=== PATIENT | female | born 1940 | race Caucasian/White ===

== ENCOUNTER 2021-05-29 14:25 | Emergency (ER) | payer MEDICARE ==
[~2021-05-29] VITALS: Ht 157.5 cm; Wt 87.5 kg
[~2021-05-29 14:25] MED LIST: Z.0.PREVACID30 MG PO; Z.0.ZOFRAN4 MG PO
[2021-05-29] MEDS ORDERED: CITALOPRAM HBR20 MG PO (15:00)
[2021-05-29] MEDS ORDERED: OXYBUTYNIN CHLOR5 MG PO (15:00)
[2021-05-29] MEDS ORDERED: PROTONIX20 MG PO (15:00)
[2021-05-29] MEDS ORDERED: BACTRIM DS TAB1 EACH PO (16:20)
== END 2021-05-29 17:43 | disposition home or self-care (01) ==
LOC: FSED 14:48
DX: M25.532 Pain in left wrist (principal); S63.592A Other specified sprain of left wrist, initial encounter; W01.0XXA Fall on same level from slipping, tripping and stumbling without subsequent striking against object, initial encounter; Y93.01 Activity, walking, marching and hiking; Y92.008 Other place in unspecified non-institutional (private) residence as the place of occurrence of the external cause; K21.9 Gastro-esophageal reflux disease without esophagitis
CPT/HCPCS: 81003; 99284

== ENCOUNTER 2022-08-31 18:04 | Emergency (ER) | payer MEDICARE ==
[~2022-08-31] VITALS: Ht 157.5 cm; Wt 86.3 kg
[~2022-08-31 18:04] MED LIST changes: +BACTRIM DS TAB1 EACH PO; +CITALOPRAM HBR20 MG PO; +OXYBUTYNIN CHLOR5 MG PO; +PROTONIX20 MG PO
[2022-08-31] MEDS ORDERED: TRIAMTERENE50 MG (18:43)
[2022-08-31] MEDS ORDERED: ALBUTEROL/IPRATROPIUM 3 ML NEB NEB ONE (19:45)
[2022-08-31] MEDS ORDERED: PREDNISONE 20 MG TAB PO ONE (19:45)
[2022-08-31] MEDS ORDERED: ALBUTEROL/IPRATROPIUM 3 ML NEB ONE (19:54)
[2022-08-31] MEDS ORDERED: PREDNISONE20 MG PO (20:00)
[2022-08-31] MEDS ORDERED: PREDNISONE 20 MG TAB ONE (20:07)
== END 2022-08-31 20:42 | disposition home or self-care (01) ==
LOC: FSED 18:09
DX: J10.1 Influenza due to other identified influenza virus with other respiratory manifestations (principal); J45.901 Unspecified asthma with (acute) exacerbation; I10 Essential (primary) hypertension; F41.9 Anxiety disorder, unspecified; F32.A Depression, unspecified; Z88.6 Allergy status to analgesic agent; Z88.0 Allergy status to penicillin; Z88.2 Allergy status to sulfonamides; Z79.899 Other long term (current) drug therapy; Z87.440 Personal history of urinary (tract) infections
CPT/HCPCS: 71046; 83518; 87400; 99283; J7512

== ENCOUNTER 2024-04-20 19:59 | Emergency (ER) | payer MEDICARE ==
[~2024-04-20] VITALS: Ht 157.5 cm; Wt 81.6 kg
[~2024-04-20 19:59] MED LIST changes: +PREDNISONE20 MG PO; +TRIAMTERENE50 MG
[2024-04-20 20:06] VITALS: PULSE 99; RESP 18; TEMP 99.7
[2024-04-20] MEDS ORDERED: LIDOCAINE HCL 1% LOCAL INJ 20 ML VIAL ONE (21:00)
[2024-04-20] MEDS: CEFTRIAXONE 1 GM VIAL IM ONE (21:01)
[2024-04-20] MEDS: TETANUS/DIPHTHERIA TOX ADULT 0.5 ML SYR IM ONE (21:02)
[2024-04-20] MEDS ORDERED: METRONIDAZOLE 500 MG TAB ONE (21:20)
[2024-04-20] MEDS: LEVOFLOXACIN 500 MG TAB PO ONE (21:30)
[2024-04-20] MEDS: METRONIDAZOLE 500 MG TAB PO ONE (21:30)
[2024-04-20] MEDS ORDERED: LEVOFLOXACIN750 MG PO (22:03)
[2024-04-20] MEDS ORDERED: METRONIDAZOLE500 MG PO (22:04)
[2024-04-20] MEDS ORDERED: ONDANSETRON ODT4 MG PO (22:05)
[2024-04-20 22:20] VITALS: BP 148/76; PULSE 98; RESP 18; TEMP 99.6; O2SAT 95
== END 2024-04-20 20:20 | disposition home or self-care (01) ==
LOC: FSED 20:03
DX: R50.9 Fever, unspecified (principal); L03.114 Cellulitis of left upper limb; S61.452A Open bite of left hand, initial encounter; W55.01XA Bitten by cat, initial encounter; Y92.89 Other specified places as the place of occurrence of the external cause; I10 Essential (primary) hypertension; J45.909 Unspecified asthma, uncomplicated; F41.9 Anxiety disorder, unspecified; K21.9 Gastro-esophageal reflux disease without esophagitis; M85.88 Other specified disorders of bone density and structure, other site
CPT/HCPCS: 73130; 90471; 90714; 96372; 99283; J0696; J2001